=== PATIENT | female | born 1990 | race African-American/Black ===

== ENCOUNTER 2016-08-28 16:32 | Emergency (ER) | payer OTHER ==
[~2016-08-28] VITALS: Ht 160 cm; Wt 54.5 kg
[~2016-08-28 16:32] MED LIST: DOCU250C91 PO; IBUP-2070 PO
[2016-08-28 16:39] VITALS: BP 128/70
[2016-08-28 18:11] LABS: BASOPHILS % (AUTO) 0.1 % (0.0-2.0); EOSINOPHILS % (AUTO) 0.9 % (1.0-6.0); HEMATOCRIT 42.2 % (36-46); HEMOGLOBIN 13.5 g/dL (12.0-16.0); LYMPHOCYTES # (AUTO) 1.3 K/uL (1.0-4.8); LYMPHOCYTES % (AUTO) 14.6 % (22.0-44.0); MEAN CORPUSCULAR HEMOGLOBIN 29.7 pg (26.0-34.0); MEAN CORPUSCULAR VOLUME 93 fL (80-100); MONOCYTES # (AUTO) 0.4 K/uL (0.1-1.0); MONOCYTES % (AUTO) 4.1 % (2.0-9.0); NEUTROPHILS # (AUTO) 7.3 K/uL (1.8-7.7); NEUTROPHILS % (AUTO) 80.3 % (40.0-70.0); PLATELET COUNT (AUTO) 300 K/uL (150-450); RED BLOOD CELL COUNT(AUTO) 4.55 MIL/uL (4.00-5.20); RED CELL DISTRIBUTION WIDTH 14.3 % (11.5-14.5); WHITE BLOOD COUNT (AUTO) 9.1 K/uL (4.5-11.0)
[2016-08-28 18:17] LABS: APPEARANCE,URINE CLEAR (CLEAR); GLUCOSE, URINE (UA) NEGATIVE (NEGATIVE); KETONES,URINE NEGATIVE (NEGATIVE); LEUKOCYTE ESTERASE ,URINE NEGATIVE (NEGATIVE); OCCULT BLOOD,URINE NEGATIVE (NEGATIVE); PROTEIN,URINE NEGATIVE (NEGATIVE)
[2016-08-28 18:20] LABS: ANION GAP 9 mmol/L (8-16); CALCIUM, TOTAL 8.5 mg/dL (8.8-10.5); CARBON DIOXIDE 26 mmol/L (22-29); CHLORIDE 101 mmol/L (98-107); CREATININE 0.66 mg/dL (0.60-1.30); GLOMERULAR FILTR. RATE CALC > 60 mL/min (>60); SODIUM SERUM 136 mmol/L (136-145); UREA NITROGEN, BLOOD 4 mg/dL (7-18)
[2016-08-28 18:23] LABS: ADD UA MICROSCOPIC NO
[2016-08-28 18:25] LABS: ALANINE AMINOTRANSFERASE 21 U/L (12-78); ALBUMIN 3.6 g/dL (3.4-5.0); ASPARTATE AMINOTRANSFERASE 14 U/L (15-37); BILIRUBIN,TOTAL 0.4 mg/dL (0.1-1.0); TOTAL PROTEIN, SERUM 7.6 g/dL (6.4-8.2)
[2016-08-28 18:34] LABS: RBC MORPHOLOGY COMMENT NORMAL RBC MORPH
== END 2016-08-28 19:43 | disposition left against medical advice (07) ==
LOC: EMS 16:32
DX: R10.31 Right lower quadrant pain (principal); J45.909 Unspecified asthma, uncomplicated; Z53.21 Procedure and treatment not carried out due to patient leaving prior to being seen by health care provider

== ENCOUNTER 2016-11-07 22:45 | Emergency (ER) | payer OTHER ==
[~2016-11-07] VITALS: Ht 160 cm; Wt 70.0 kg
[2016-11-07 23:08] LABS: BASOPHILS % (AUTO) 0.2 % (0.0-2.0); EOSINOPHILS % (AUTO) 0.4 % (1.0-6.0); HEMATOCRIT 36.2 % (36-46); HEMOGLOBIN 12.4 g/dL (12.0-16.0); LYMPHOCYTES # (AUTO) 1.5 K/uL (1.0-4.8); LYMPHOCYTES % (AUTO) 15.8 % (22.0-44.0); MEAN CORPUSCULAR HGB CONC 34.2 G/dL (31.0-37.0); MEAN CORPUSCULAR VOLUME 91 fL (80-100); MONOCYTES # (AUTO) 0.5 K/uL (0.1-1.0); MONOCYTES % (AUTO) 5.1 % (2.0-9.0); NEUTROPHILS # (AUTO) 7.3 K/uL (1.8-7.7); NEUTROPHILS % (AUTO) 78.5 % (40.0-70.0); PLATELET COUNT (AUTO) 215 K/uL (150-450); WHITE BLOOD COUNT (AUTO) 9.3 K/uL (4.5-11.0)
[2016-11-07] MEDS ORDERED: MORPHINE SULFATE 2 MG/ML SYRINGE IVP ONE (23:30)
[2016-11-08] MEDS ORDERED: POVIDONE-IODINE 10% 120 ML SOLUTION TP ONE ×2 (00:14→00:15)
[2016-11-08] MEDS ORDERED: MORPHINE SULFATE 4 MG/ML SYRINGE ONE (00:18)
[2016-11-08] MEDS ORDERED: METHYLERGONOVINE MALEATE 0.2 MG/ML VIAL IVP ONE (00:30)
[2016-11-08] MEDS ORDERED: ONDANSETRON HCL 4 MG/2 ML VIAL IVP ONE (00:30)
[2016-11-08] MEDS ORDERED: MORPHINE SULFATE 4 MG/ML SYRINGE IVP ONE (00:30)
[2016-11-08] MEDS ORDERED: DEXTROSE 5% IV ONE (01:00)
[2016-11-08] MEDS ORDERED: DOXYCYCLINE 100 MG in DEXTROSE 5%-WATER 100 ML IV ONE ×2 (01:00→02:00)
[2016-11-08] MEDS ORDERED: DOXYCYCLINE IV ONE (01:00)
[2016-11-08] MEDS ORDERED: WATER IV ONE (01:00)
[2016-11-08 03:12] VITALS: BP 121/71
== END 2016-11-08 03:14 | disposition home or self-care (01) ==
LOC: EMS 22:46
DX: O03.9 Complete or unspecified spontaneous abortion without complication (principal); J45.909 Unspecified asthma, uncomplicated; Z88.1 Allergy status to other antibiotic agents
CPT/HCPCS: 36415; 76801; 76817; 84702; 85025; 86901; 88300; 88305; 96365; 96375; 96376; 99285; J2210; J2270 ×2; J2405; J3490; J7060

== ENCOUNTER 2019-01-16 21:00 | Emergency (ER) | payer OTHER ==
[~2019-01-16] VITALS: Ht 160 cm; Wt 54.5 kg
[2019-01-16 21:09] VITALS: BP 137/92
== END 2019-01-16 22:30 | disposition left against medical advice (07) ==
LOC: EMS 21:02
DX: K08.89 Other specified disorders of teeth and supporting structures (principal); Z53.21 Procedure and treatment not carried out due to patient leaving prior to being seen by health care provider

== ENCOUNTER 2020-01-24 09:55 | Emergency (ER) | payer OTHER ==
[~2020-01-24] VITALS: Ht 160 cm; Wt 65.9 kg
[2020-01-24 09:57] VITALS: BP 128/76
== END 2020-01-24 11:46 | disposition left against medical advice (07) ==
LOC: EMS 10:00
DX: R51.9 Headache, unspecified (principal); Z53.21 Procedure and treatment not carried out due to patient leaving prior to being seen by health care provider

== ENCOUNTER 2023-09-13 09:11 | Emergency (ER) | payer OTHER ==
[~2023-09-13] VITALS: Ht 154.9 cm; Wt 81.8 kg
[2023-09-13] MEDS ORDERED: MEDR150V13 IM (09:16)
[2023-09-13 09:20] VITALS: TEMP 98
[2023-09-13] MEDS: LIDOCAINE/PF 1% 2 ML VIAL IM ONE (10:20)
[2023-09-13] MEDS: CefTRIAXone SODIUM 1 GM/VIAL IM ONE (10:20)
[2023-09-13] MEDS: SULFAMETHOX/TRIMETH DS 800-160 MG/TABLET PO ONE (10:20)
[2023-09-13 10:45] VITALS: BP 120/75; PULSE 90; RESP 16
[2023-09-13] MEDS ORDERED: CEPH-558 PO (10:45)
[2023-09-13] MEDS ORDERED: SULF-261 PO (10:45)
== END 2023-09-13 10:56 | disposition home or self-care (01) ==
LOC: EMS 09:12
DX: L03.211 Cellulitis of face (principal); J45.909 Unspecified asthma, uncomplicated
CPT/HCPCS: 99284; 96372; J0696; J3490

== ENCOUNTER 2023-09-15 14:27 | Emergency (ER) | payer OTHER ==
[~2023-09-15] VITALS: Ht 167.6 cm; Wt 86.4 kg
[~2023-09-15 14:27] MED LIST changes: +CEPH-558 PO; -DOCU250C91 PO; -IBUP-2070 PO; +MEDR150V13 IM; +SULF-261 PO
[2023-09-15 14:35] VITALS: BP 106/66; PULSE 99; RESP 18; TEMP 98.3
[2023-09-15] MEDS: LIDOCAINE 1% 10 ML VIAL ID ONE (15:56)
[2023-09-15] MEDS: POVIDONE-IODINE 10% 15 ML SOLUTION UD TP ONE (15:56)
== END 2023-09-15 16:11 | disposition home or self-care (01) ==
LOC: EMS 14:29
DX: L02.01 Cutaneous abscess of face (principal)
CPT/HCPCS: 99283; 10060; J3490; 99282

== ENCOUNTER 2024-01-06 15:33 | Emergency (ER) | payer OTHER ==
[~2024-01-06] VITALS: Ht 167.6 cm; Wt 86.0 kg
[2024-01-06 15:47] VITALS: TEMP 98.1
[2024-01-06] MEDS: TraMADol HCL 50 MG TABLET PO ONE (16:06)
[2024-01-06 16:34] LABS: BASOPHILS % (AUTO) 0.2 % (0.0-2.0); EOSINOPHILS % (AUTO) 0.4 % (1.0-6.0); HEMATOCRIT 41.4 % (36-46); HEMOGLOBIN 13.6 g/dL (12.0-16.0); LYMPHOCYTES # (AUTO) 1.1 K/uL (1.0-4.8); LYMPHOCYTES % (AUTO) 11.5 % (22.0-44.0); MEAN CORPUSCULAR HGB CONC 32.9 G/dL (31.0-37.0); MEAN CORPUSCULAR VOLUME 91 fL (80-100); MONOCYTES # (AUTO) 0.4 K/uL (0.1-1.0); MONOCYTES % (AUTO) 4.6 % (2.0-9.0); NEUTROPHILS # (AUTO) 8.1 K/uL (1.8-7.7); NEUTROPHILS % (AUTO) 83.3 % (40.0-70.0); PLATELET COUNT (AUTO) 328 K/uL (150-450); RED BLOOD CELL COUNT(AUTO) 4.55 MIL/uL (4.00-5.20); RED CELL DISTRIBUTION WIDTH 13.2 % (11.5-14.5); WHITE BLOOD COUNT (AUTO) 9.7 K/uL (4.5-11.0)
[2024-01-06 16:41] LABS: ANION GAP 8 mmol/L (8-16); CALCIUM, TOTAL 8.8 mg/dL (8.8-10.5); CARBON DIOXIDE 27 mmol/L (22-29); CHLORIDE 107 mmol/L (98-107); CREATININE 1.21 mg/dL (0.60-1.30); GLOMERULAR FILTR. RATE CALC > 60 mL/min (>60); GLUCOSE,RANDOM 78 mg/dL (70-110); POTASSIUM 3.8 mmol/L (3.5-5.1); SODIUM SERUM 142 mmol/L (136-145); UREA NITROGEN, BLOOD 5 mg/dL (7-18)
[2024-01-06] MEDS ORDERED: TRAM50TA5 PO (18:01)
[2024-01-06 18:11] VITALS: BP 131/81; PULSE 88; RESP 18; O2SAT 99
[2024-01-06 18:15] LABS: APPEARANCE,URINE CLEAR (CLEAR); BILIRUBIN,URINE NEGATIVE (NEGATIVE); COLOR,URINE LIGHT YELLOW (YELLOW); GLUCOSE, URINE (UA) NEGATIVE (NEGATIVE); KETONES,URINE NEGATIVE (NEGATIVE); LEUKOCYTE ESTERASE ,URINE NEGATIVE (NEGATIVE); NITRATE,URINE NEGATIVE (NEGATIVE); OCCULT BLOOD,URINE TRACE (NEGATIVE); PROTEIN,URINE 30-70 mg/dL (NEGATIVE); SPECIFIC GRAVITIY, URINE 1.012 (1.003-1.030); UROBILINOGEN,URINE <=1.0 mg/dL (<=1.0)
[2024-01-06 18:21] LABS: BACTERIA,URINE Few /HPF (None Seen); SQUAMOUS EPITHELIAL CELL,UR Few /LPF (None Seen); WBC,URINE 0-2 /HPF (0-5)
== END 2024-01-06 18:13 | disposition home or self-care (01) ==
LOC: EMS 15:33
DX: S00.03XA Contusion of scalp, initial encounter (principal); J45.909 Unspecified asthma, uncomplicated; V89.2XXA Person injured in unspecified motor-vehicle accident, traffic, initial encounter; Y93.89 Activity, other specified; Y92.89 Other specified places as the place of occurrence of the external cause; Y99.8 Other external cause status
CPT/HCPCS: 70450; 72125; 80048; 81001; 84703; 85025; 99284